=== PATIENT | male | born 1940 | race Caucasian/White ===

== ENCOUNTER 2017-05-20 05:45 | Emergency (ER) | payer OTHER ==
[~2017-05-20] VITALS: Ht 177.8 cm; Wt 72.6 kg
[~2017-05-20 05:45] MED LIST: FLOMAX0.4 MG PO
[2017-05-20] MEDS ORDERED: FLOMAX0.4 MG PO (05:57)
[2017-05-20] MEDS ORDERED: NORCO 5-325 TA1 EACH PO (06:10)
[2017-05-20] MEDS ORDERED: PENICILLIN VK500 M1 PO (06:10)
== END 2017-05-20 06:34 | disposition home or self-care (01) ==
LOC: ER 05:45
DX: K04.7 Periapical abscess without sinus (principal)

== ENCOUNTER 2017-09-27 09:52 | Emergency (ER) | payer OTHER ==
[~2017-09-27] VITALS: Ht 177.8 cm; Wt 72.6 kg
[~2017-09-27 09:52] MED LIST changes: +NORCO 5-325 TA1 EACH PO; +PENICILLIN VK500 M1 PO
[2017-09-27] MEDS ORDERED: PENICILLIN V P500 MG PO (10:05)
[2017-09-27] MEDS ORDERED: HYDROCODONE-AP1 EAC6 PO (10:05)
[2017-09-27 10:15] VITALS: BP 131/70
== END 2017-09-27 10:15 | disposition home or self-care (01) ==
LOC: ER 09:52
DX: K05.10 Chronic gingivitis, plaque induced (principal)